=== PATIENT | male | born 1995 | race Two or more races ===

== ENCOUNTER 2017-03-30 17:28 | Emergency (ER) | payer MEDICAID ==
[~2017-03-30] VITALS: Ht 172.7 cm; Wt 52.2 kg
[2017-03-30 17:43] VITALS: BP 95/44
== END 2017-03-30 21:55 | disposition left against medical advice (07) ==
LOC: ER 17:34
DX: M79.641 Pain in right hand (principal); Z53.21 Procedure and treatment not carried out due to patient leaving prior to being seen by health care provider; Z48.01 Encounter for change or removal of surgical wound dressing

== ENCOUNTER 2019-05-08 16:10 | Emergency (ER) | payer MEDICAID, OTHER ==
[~2019-05-08] VITALS: Ht 172.7 cm; Wt 58.1 kg
[2019-05-08 16:09] VITALS: BP 118/59
== END 2019-05-08 17:49 | disposition home or self-care (01) ==
LOC: ER 16:10
DX: R51 Headache (principal); M54.2 Cervicalgia; F17.210 Nicotine dependence, cigarettes, uncomplicated; F12.10 Cannabis abuse, uncomplicated; W20.8XXA Other cause of strike by thrown, projected or falling object, initial encounter; Y93.89 Activity, other specified; Y92.89 Other specified places as the place of occurrence of the external cause; Y99.8 Other external cause status
CPT/HCPCS: 70450

== ENCOUNTER 2025-10-19 18:52 | Emergency (ER) | payer OTHER ==
[~2025-10-19] VITALS: Ht 172.7 cm; Wt 54.7 kg
--- NOTE | 2025-10-19 20:48 | ED.PDOC ---
HPI (NEURO) HPI Comments A 30 year-old male, presents to the ED with a chief complaint of headache for X5 days. Patient reports taking Ibuprofen medication, without relief. Patient has no further complaints at this time, and otherwise denies further associated symptoms of slurred speech, weakness, dizziness, or fatigue. Chief Complaint: Headache Time Seen by MD: 20:45 Primary Care Provider: ABRAHAM Reviewed Notes: Medications, Allergies Information Source: Patient Mode of Arrival: Ambulatory Severity: Moderate Headache Severity: Moderate Duration: Since onset Circumstances: Spontaneous Associated Signs and Symptoms: Headache Past Medical History PAST MEDICAL HISTORY: Denies Surgical History: Denies all surgeries Family History Family History: Unknown Social History Smoker: Cigarettes, Less Than 1 Pack/Day Alcohol: Rarely Drugs: Marijuana Lives In: Home Constitutional: denies: chills, diaphoresis, fatigue, fever, malaise, sweats, weakness, others EENTM: denies: blurred vision, double vision, ear bleeding, ear discharge, ear drainage, ear pain, ear ringing, eye pain, eye redness, hearing loss, mouth pain, mouth swelling, nasal discharge, nose bleeding, nose congestion, nose pain, photophobia, tearing, throat pain, throat swelling, voice changes, others Respiratory: denies: cough, hemoptysis, orthopnea, SOB at rest, shortness of breath, SOB with excertion, stridor, wheezing, others Cardiovascular: denies: chest pain, dizzy spells, diaphoresis, Dyspnea on exertion, edema, irregular heart beat, left arm pain, lightheadedness, palpitations, PND, syncope, others Gastrointestinal: denies: abdomen distended, abdominal pain, blood streaked bowels, constipated, diarrhea, dysphagia, difficulty swallowing, hematemesis, melena, nausea, poor appetite, poor fluid intake, rectal bleeding, rectal pain, vomiting, others Genitourinary: denies: burning, dysuria, flank pain, frequency, hematuria, incontinence, penile discharge, penile sore, pain, testicle pain, testicle swelling, urgency, others Neurological: reports: headache; denies: dizziness, fainting, left sided numbness, left sided weakness, numbness, paresthesia, pre-existing deficit, right sided numbness, right sided weakness, seizure, speech problems, tingling, tremors, weakness, others Musculoskeletal: denies: back pain, gout, joint pain, joint swelling, muscle pain, muscle stiffness, neck pain, others Integumetry: denies: bruises, change in color, change in hair/nails, dryness, laceration, lesions, lumps, rash, wounds, others Allergic/Immunocompromised: denies: Difficulty Healing, Frequent Infections, Hives, Itching, others Hematologic/Lymphatic: denies: anemia, blood clots, easy bleeding, easy bruising, swollen glands, others Endocrine: denies: excessive hunger, excessive sweating, excessive thirst, excessive urination, flushing, intolerance to cold, intolerance to heat, unexplained weight gain, unexplained weight loss, others Psychiatric: denies: anxiety, bipolar disorder, depression, hopeless, panic disorder, schizophrenia, sleepless, suicidal, others All Other Systems: Reviewed and Negative Physical Exam General Appearance: No Apparent Distress, Normal HEENT: Normal ENT Inspection, Pharynx Normal, TMs Normal Neck: Full Range of Motion, Non-Tender Respiratory: Lungs Clear, No Respiratory Distress, Normal Breath Sounds Cardiovascular: No Edema, No JVD, No Murmur, No Gallop, Normal Peripheral Pulses, Regular Rate/Rhythm Breast Exam: Deferred Gastrointestinal: No Organomegaly, Non Tender, No Pulsatile Mass, Normal Bowel Sounds, Soft Genitalia: Deferred Pelvic: Deferred Rectal: Deferred Extremities: Normal capillary refill, Normal range of motion Musculoskeletal : Apperance: Normal Neurologic: Alert, No Motor Deficits, Normal Affect, Normal Mood, No Sensory Deficits Cerebellar Function: Normal Reflexes: Normal Skin: Dry, Normal Color, Warm Lymphatic: No Adenopathy Was a procedure done? Was a procedure done?: No Differential Diagnosis (SZ) Headache: Cluster, Migraine, Closed Head Injury, Sinusitis X-Ray, Labs, Meds, VS Vital Signs Date Time Temp Pulse Resp B/P (MAP) Pulse Ox O2 Delivery O2 Flow Rate FiO2 10/19/25 23:45 Room Air* 0 21 10/19/25 23:44 98.4 86 97 101/78 (86) 16 98.4 10/19/25 22:17 98.5 88 17 115/81 (92) 98 98.5 10/19/25 18:54 98.7 99 16 115/80 94 98.7 X-Ray, Labs, Meds, VS Comment Patient reports moderate improvement in pain after administration of me dications. Requesting discharge at this time. Advised to rest increase p.o. fluids with electrolytes. Advised to follow up with his PCP in 2-3 days as necessary. ER return precautions given patient indicates understanding and agrees with discharge plan of care Time of 1ST Reevaluation: 21:23 Reevaluation 1ST: Unchanged Time of 2ND Reevaluation: 23:45 Reevaluation 2ND: Improved Patient Education/Counseling: Diagnosis, Treatment Family Education/Counseling: No Family Present Departure 1 Departure Time of Disposition: 23:48 Impression: Primary Impression: Headache Qualified Codes: G44.209 - Tension-type headache, unspecified, not intracta ble Disposition: HOME / SELF CARE / HOMELESS Condition: Stable Discharged With: Self Critical Care Note Critical Care Time?: No Stability Stability form required: No Heart Score Heart Score: Heart Score Response (Comments) Value History N/A 0 EKG N/A 0 Age N/A 0 Risk Factors N/A 0 Troponin N/A 0 Total 0 I personally scribed for ER ([email or web address]) on 10/19/25 at 20:48. Electronically submitted by Merly Dia ([email or web address]). I personally scribed for ER ([email or web address]) on 10/19/25 at 20:52. Electronically submitted by Merly Dia ([email or web address]). ER Oct 19, 2025 20:48 VALENTINA RUBIO Oct 19, 2025 23:48
[2025-10-19] MEDS: PROCHLORPERAZINE EDISYLATE 5 MG/ML 2ML VIAL IV ONE (22:04)
[2025-10-19] MEDS: SODIUM CHLORIDE 0.9% 1,000 ML IV ONE (22:05)
[2025-10-19] MEDS: KETOROLAC TROMETH 30 MG/ML 1ML VIAL IV ONE (22:05)
[2025-10-19 23:44] VITALS: BP 101/78; PULSE 86; RESP 97; TEMP 98.4; O2SAT 16
[2025-10-19] MEDS ORDERED: SUMA25TA2 PO (23:52)
== END 2025-10-19 23:53 | disposition home or self-care (01) ==
LOC: ER 18:52
DX: R51.9 Headache, unspecified (principal); F12.90 Cannabis use, unspecified, uncomplicated; F10.90 Alcohol use, unspecified, uncomplicated; F17.210 Nicotine dependence, cigarettes, uncomplicated
CPT/HCPCS: 96361; 96374; 96375; 99284; J0780; J1100; J1885; J7030